=== PATIENT | female | born 1985 | race American Indian/Alaskan Native ===

== ENCOUNTER 2018-06-01 23:55 | Emergency (ER) | payer MEDICAID ==
[2018-06-02 00:13] VITALS: BP 139/98
[2018-06-02] MEDS ORDERED: NORCO 5/325 ONE (01:53)
[2018-06-02] MEDS ORDERED: NORCO 5/325 PO ONE (01:57)
[2018-06-02] MEDS ORDERED: DECADRON IV ONE (05:31)
[2018-06-02] MEDS ORDERED: TORADOL IM ONE (05:31)
--- NOTE | 2018-06-02 05:35 | Emergency Department Report ---
ED Extremity Problem HPI - General Chief complaint: Extremity Injury, Upper Stated complaint: THIGH PAIN Time Seen by Provider: 06/02/18 05:30 Source: patient Mode of arrival: Ambulatory Limitations: No Limitations - History of Present Illness Initial comments: 32-year-old obese -[place] female comes to the emergency room complaining of right hip pain 10 out of 10 status post Sohan with the kids and slipped and tumbled 1 today. Patient reports that she did a split and started having pain in her right hip. Patient reports she did not take any medications she has no past medical history currently has no known drug allergies. Patient reports that she had pain medicine since she's been here and it really has not helped her pain. Complaint: extremity pain -: During the night Location: right, lower extremity (hip) -: Yes myalgia Severity scale (0 -10): 10 Quality: burning, aching, sharp Consistency: constant Worsens with: other (movement) - Related Data Previous Rx's Medication Instructions Recorded Last Taken Type Ibuprofen [Motrin 800 MG tab] 800 mg PO Q8HR PRN #30 tablet 06/02/18 Unknown Rx Prednisone [predniSONE 5 mg (6-Day 5 mg PO .TAPER #1 tab.ds.pk 06/02/18 Unknown Rx Pack, 21 Tabs)] Allergies Allergy/AdvReac Type Severity Reaction Status Date / Time No Known Allergies Allergy Verified 06/02/18 00:06 ED Review of Systems ROS: Stated complaint: THIGH PAIN Other details as noted in HPI Musculoskeletal: arthralgia (right hip pain) ED Past Medical Hx - Past Medical History Previous Medical History?: No - Surgical History Additional Surgical History: tubal ligation - Social History Smoking Status: Never Smoker Substance Use Type: None - Medications Home Medications: Home Medications Medication Instructions Recorded Confirmed Last Taken Type Ibuprofen [Motrin 800 MG tab] 800 mg PO Q8HR PRN #30 tablet 06/02/18 Unknown Rx Prednisone [predniSONE 5 mg (6-Day 5 mg PO .TAPER #1 tab.ds.pk 06/02/18 Unknown Rx Pack, 21 Tabs)] ED Physical Exam - General Limitations: No Limitations General appearance: alert, in no apparent distress - Head Head exam: Present: atraumatic, normocephalic - Expanded Lower Extremity Exam Right Hip exam: Present: full ROM, tenderness Upper Leg exam: Present: normal inspection, full ROM. Absent: tenderness Neuro vascular tendon exam: Present: no vascular compromise - Back Exam Back exam: Present: tenderness - Expanded Back Exam Expanded Back exam: Sciatic Notch Tenderness: Right, Positive Straight Leg Raise: Right - Neurological Exam Neurological exam: Present: alert, oriented X3 - Psychiatric Psychiatric exam: Present: normal affect, normal mood - Skin Skin exam: Present: warm, dry, intact, normal color. Absent: rash ED Course Vital Signs 06/02/18 00:06 Temperature 98.0 F Pulse Rate 104 H Respiratory 14 Rate Blood Pressure 139/98 O2 Sat by Pulse 99 Oximetry ED Medical Decision Making - Medical Decision Making Patient has been evaluated by this provider fast track. [place], Toradol and dexamethasone given for pain management. Discussed the patient this appears to be a sciatica irritation. Will discharge patient on ibuprofen 800 mg every 8 hours as needed for pain. Discussed with patient she can follow up her primary care provider if symptoms persist or gets worse. Critical care attestation.: If time is entered above; I have spent that time in minutes in the direct care of this critically ill patient, excluding procedure time. ED Disposition Clinical Impression: Sciatica without back pain Qualifiers: Laterality: right Qualified Code(s): M54.31 - Sciatica, right side Disposition: - TO HOME OR SELFCARE Is pt being admited?: No Does the pt Need Aspirin: No Condition: Stable Instructions: Sciatica (ED), Lumbar Radiculopathy (ED) Additional Instructions: Please take medication as prescribed. Follow-up with the primary care provider if symptoms persist or gets worse. Prescriptions: Ibuprofen [Motrin 800 MG tab] 800 mg PO Q8HR PRN #30 tablet PRN Reason: Pain , Severe (7-10) Prednisone [predniSONE 5 mg (6-Day Pack, 21 Tabs)] 5 mg PO .TAPER #1 tab.ds.pk Referrals: PRIMARY CARE, [Primary Care Provider] - 3-[address] [facility] [Provider Group] - 3-5 Days Forms: Accompanied Note, Work/School Release Form(ED)
== END 2018-06-02 05:50 | disposition home or self-care (01) ==
LOC: ED 06-02 00:35
DX: M54.31 Sciatica, right side (principal); Z98.51 Tubal ligation status
CPT/HCPCS: 96372; 96374; 99283; J1100; J1885

== ENCOUNTER 2018-06-05 10:01 | Emergency (ER) | payer MEDICAID ==
[2018-06-05 10:08] VITALS: BP 121/80
== END 2018-06-05 10:10 | disposition left against medical advice (07) ==
LOC: ED 10:01
DX: R10.9 Unspecified abdominal pain (principal); Z53.21 Procedure and treatment not carried out due to patient leaving prior to being seen by health care provider

== ENCOUNTER 2018-06-06 22:22 | Emergency (ER) | payer MEDICAID ==
[2018-06-06] MEDS ORDERED: NACL 0.9% 1000 ML 1,000 ML IV ONE (23:48)
[2018-06-07 00:10] LABS: Basophils % (Auto) 0.4 % (0.0-1.8); Eosinophils # (Auto) 0.1 K/mm3 (0.0-0.4); Eosinophils % (Auto) 0.7 % (0.0-4.3); Hematocrit 39.4 % (30.3-42.9); Hemoglobin 12.7 gm/dl (10.1-14.3); Lymphocytes # (Auto) 2.3 K/mm3 (1.2-5.4); Lymphocytes % (Auto) 31.4 % (13.4-35.0); Mean Corpuscular HGB Conc 32 % (30-34); Mean Corpuscular Volume 72 fl (79-97); Monocytes # (Auto) 0.3 K/mm3 (0.0-0.8); Monocytes % (Auto) 4.4 % (0.0-7.3); Platelet Count 301 K/mm3 (140-440); Red Blood Count 5.48 M/mm3 (3.65-5.03); Red Cell Distribution Width 15.3 % (13.2-15.2)
[2018-06-07 00:11] LABS: Mean Corpuscular Hemoglobin 23 pg (28-32)
[2018-06-07 00:29] LABS: Alanine Aminotransferase 10 units/L (7-56); Albumin 4.1 g/dL (3.9-5); BUN/Creatinine Ratio 18; Blood Urea Nitrogen 18 mg/dL (7-17); Calcium 9.5 mg/dL (8.4-10.2); Hemolysis Index 5; Lipase 32 units/L (13-60)
[2018-06-07 02:11] LABS: Bilirubin,Urine NEG (Negative); Blood,Urine NEG (Negative); Color,Urine Yellow (Yellow); Mucus,Urine FEW /HPF; Protein,Urine <15 mg/dL mg/dL (Negative)
[2018-06-07 02:33] VITALS: BP 131/91
== END 2018-06-07 07:20 | disposition left against medical advice (07) ==
LOC: ED 22:22
DX: R10.9 Unspecified abdominal pain (principal); R11.2 Nausea with vomiting, unspecified; Z98.51 Tubal ligation status; Z53.21 Procedure and treatment not carried out due to patient leaving prior to being seen by health care provider
CPT/HCPCS: 36415; 80053; 81001; 83690; 85025

== ENCOUNTER 2019-04-08 06:45 | Emergency (ER) | payer MEDICAID ==
[2019-04-08 06:49] VITALS: BP 122/82
--- NOTE | 2019-04-08 07:55 | Emergency Department Report ---
ED ENT HPI - General Chief complaint: Sore Throat Stated complaint: SORE THROAT/BOTH EAR PAIN Source: patient Mode of arrival: Ambulatory Limitations: No Limitations - History of Present Illness Initial comments: This is a 33 year-old female who presents to the emergency room with sore throat, cough, bilateral ear pain for 4 days. Patient states she is currently using Chloraseptic Nenzel with no improvement of symptoms. Patient states her children or sick last week and they were diagnosed with upper respiratory infections 3 days ago by community development officer. She thinks she possibly caught something from them. She denies fever, chills, nausea, vomiting, diarrhea, and mild Leslye. MD complaint: sore throat, ear pain (bilateral) Onset/Timin -: days(s) Location: R ear, L ear, throat Severity: moderate Severity scale (0 -10): 10 Quality: aching Consistency: intermittent Improves with: none Worsens with: swallowing Associated Symptoms: cough, pain with swallowing, sore throat, rhinorrhea. denies: fever, gum swelling, toothache, tinnitus, hearing loss, discharge from ear - Related Data Previous Rx's Medication Instructions Recorded Last Taken Type Ibuprofen [Motrin 800 MG tab] 800 mg PO Q8HR PRN #30 tablet 06/02/18 Unknown Rx Prednisone [predniSONE 5 mg (6-Day 5 mg PO .TAPER #1 tab.ds.pk 06/02/18 Unknown Rx Pack, 21 Tabs)] Amoxicillin [Trimox CAP] 500 mg PO BID 10 Days #20 capsule 04/08/19 Unknown Rx Benzonatate [Tessalon Perles] 100 mg PO Q8HR PRN #30 capsule 04/08/19 Unknown Rx Cetirizine HCl [Zyrtec 10mg tab] 10 mg PO DAILY #30 tablet 04/08/19 Unknown Rx Dextromethorphan/Benzocaine 1 each PO Q2H PRN #30 lozenge 04/08/19 Unknown Rx [Cepacol Sorethroat-Cough Miki] Fluticasone [Flonase] 1 spray NS QDAY #1 bottle 04/08/19 Unknown Rx Allergies Allergy/AdvReac Type Severity Reaction Status Date / Time No Known Allergies Allergy Verified 06/02/18 00:06 ED Dental HPI - General Chief complaint: Sore Throat Stated complaint: SORE THROAT/BOTH EAR PAIN Source: patient Mode of arrival: Ambulatory Limitations: No Limitations - Related Data Previous Rx's Medication Instructions Recorded Last Taken Type Ibuprofen [Motrin 800 MG tab] 800 mg PO Q8HR PRN #30 tablet 06/02/18 Unknown Rx Prednisone [predniSONE 5 mg (6-Day 5 mg PO .TAPER #1 tab.ds.pk 06/02/18 Unknown Rx Pack, 21 Tabs)] Amoxicillin [Trimox CAP] 500 mg PO BID 10 Days #20 capsule 04/08/19 Unknown Rx Benzonatate [Tessalon Perles] 100 mg PO Q8HR PRN #30 capsule 04/08/19 Unknown Rx Cetirizine HCl [Zyrtec 10mg tab] 10 mg PO DAILY #30 tablet 04/08/19 Unknown Rx Dextromethorphan/Benzocaine 1 each PO Q2H PRN #30 lozenge 04/08/19 Unknown Rx [Cepacol Sorethroat-Cough Miki] Fluticasone [Flonase] 1 spray NS QDAY #1 bottle 04/08/19 Unknown Rx Allergies Allergy/AdvReac Type Severity Reaction Status Date / Time No Known Allergies Allergy Verified 06/02/18 00:06 ED Review of Systems ROS: Stated complaint: SORE THROAT/BOTH EAR PAIN Other details as noted in HPI Constitutional: chills, fever ENT: ear pain, throat pain, congestion. denies: epistaxis Respiratory: cough. denies: shortness of breath, wheezing Cardiovascular: denies: chest pain, palpitations Endocrine: no symptoms reported Gastrointestinal: denies: abdominal pain, nausea, diarrhea Musculoskeletal: denies: back pain, joint swelling, arthralgia, myalgia Skin: denies: rash, lesions Neurological: denies: headache, weakness, paresthesias Psychiatric: denies: anxiety, depression ED Past Medical Hx - Past Medical History Previous Medical History?: No - Surgical History Past Surgical History?: Yes Additional Surgical History: tubal ligation - Social History Smoking Status: Never Smoker Substance Use Type: None - Medications Home Medications: Home Medications Medication Instructions Recorded Confirmed Last Taken Type Ibuprofen [Motrin 800 MG tab] 800 mg PO Q8HR PRN #30 tablet 06/02/18 Unknown Rx Prednisone [predniSONE 5 mg (6-Day 5 mg PO .TAPER #1 tab.ds.pk 06/02/18 Unknown Rx Pack, 21 Tabs)] Amoxicillin [Trimox CAP] 500 mg PO BID 10 Days #20 capsule 04/08/19 Unknown Rx Benzonatate [Tessalon Perles] 100 mg PO Q8HR PRN #30 capsule 04/08/19 Unknown Rx Cetirizine HCl [Zyrtec 10mg tab] 10 mg PO DAILY #30 tablet 04/08/19 Unknown Rx Dextromethorphan/Benzocaine 1 each PO Q2H PRN #30 lozenge 04/08/19 Unknown Rx [Cepacol Sorethroat-Cough Miki] Fluticasone [Flonase] 1 spray NS QDAY #1 bottle 04/08/19 Unknown Rx ED Physical Exam - General Limitations: No Limitations General appearance: alert, in no apparent distress, obese (morbidly obese) - ENT ENT exam: Present: mucous membranes moist, other (turbinates mildly congested with mucoid discharge). Absent: normal orophraynx (erythematous posterior pharynx, uvula midline without exudate), TM's normal bilaterally (erythematous bulging TM on the right, tenderness) - Neck Neck exam: Present: normal inspection - Respiratory Respiratory exam: Present: normal lung sounds bilaterally. Absent: respiratory distress - Cardiovascular Cardiovascular Exam: Present: regular rate, normal rhythm. Absent: systolic murmur, diastolic murmur, rubs, gallop - GI/Abdominal GI/Abdominal exam: Present: soft, normal bowel sounds. Absent: distended, tenderness, guarding, rebound, rigid - Neurological Exam Neurological exam: Present: alert, oriented X3 - Psychiatric Psychiatric exam: Present: normal affect, normal mood - Skin Skin exam: Present: warm, dry, intact, normal color. Absent: rash ED Course Vital Signs 04/08/19 06:48 Temperature 98.0 F Pulse Rate 94 H Respiratory 18 Rate Blood Pressure 122/82 O2 Sat by Pulse 97 Oximetry ED Medical Decision Making - Medical Decision Making Patient is stable and was examined by me. Vitals normal. Physical assessment susceptible of serous otitis media of right ear and upper respiratory infection. Start amoxicillin, benzonatate, cetirizine, Cepacol and Flonase. Take ibuprof en for pain. Discussed plan with patient and she agreed with plan. Discharged home in stable condition. Follow up with PCP in 24-72 hours. Critical care attestation.: If time is entered above; I have spent that time in minutes in the direct care of this critically ill patient, excluding procedure time. ED Disposition Clinical Impression: Otalgia of both ears, Sore throat (viral), Cough in adult Otitis media Qualifiers: Otitis media type: suppurative Chronicity: acute Laterality: right Recurrence: non-recurrent Spontaneous tympanic membrane rupture: without spontaneous rupture Qualified Code(s): H66.001 - Acute suppurative otitis media without spontaneous rupture of ear drum, right ear Upper respiratory infection Qualifiers: URI type: acute nasopharyngitis (common cold) Qualified Code(s): J00 - Acute nasopharyngitis [common cold] Disposition: TO HOME OR SELFCARE Is pt being admited?: No Does the pt Need Aspirin: No Condition: Stable Instructions: Upper Respiratory Infection (ED), Cold Symptoms (ED), Otitis Media (ED) Additional Instructions: Symptoms are most likely coming from for infection. Take antibiotics as prescribed to avoid recurrence of the ear infection. Avoid high altitudes, may worsen the pain going ear infection. Take ibuprofen every 6 hours alternated with Tylenol every 4 hours pain. You may not feel like eating which is to be expected. Try eating a bland diet as tolerated. Wash hands frequently. F/U with Primary Care Provider. Return to ER if fever, SOB, or difficulty breathing after 48 hours of supportive care. Prescriptions: Dextromethorphan/Benzocaine [Cepacol Sorethroat-Cough Miki] 1 each PO Q2H PRN #30 lozenge PRN Reason: Sore Throat Fluticasone [Flonase] 1 spray NS QDAY #1 bottle Benzonatate [Tessalon Perles] 100 mg PO Q8HR PRN #30 capsule PRN Reason: Cough Amoxicillin [Trimox CAP] 500 mg PO BID 10 Days #20 capsule Cetirizine HCl [Zyrtec 10mg tab] 10 mg PO DAILY #30 tablet Referrals: [facility] [Other] - 3-5 Days [facility] [Outside] - 3-5 Days [facility] [Outside] - 3-5 Days Forms: Work/School Release Form(ED) Time of Disposition: 08:24
== END 2019-04-08 08:41 | disposition home or self-care (01) ==
LOC: ED 06:45
DX: H66.93 Otitis media, unspecified, bilateral (principal); J02.9 Acute pharyngitis, unspecified; J06.9 Acute upper respiratory infection, unspecified; Z98.51 Tubal ligation status
CPT/HCPCS: 99282